=== PATIENT | male | born 1945 | race Native Hawaiian/Other Pacific Islander ===

== ENCOUNTER 2019-10-08 12:07 | Emergency (ER) | payer MEDICARE ==
[2019-10-08 12:19] VITALS: BP 175/77
--- NOTE | 2019-10-08 12:56 | XRay Report ---
CHEST 2 VIEWS INDICATION / CLINICAL INFORMATION: cough. COMPARISON: None available. FINDINGS: SUPPORT DEVICES: None. HEART / MEDIASTINUM: No significant abnormality. LUNGS / PLEURA: There is a focal hazy opacity in the right upper lobe. No pneumothorax. ADDITIONAL FINDINGS: No significant additional findings. IMPRESSION: 1. Hazy parenchymal opacity in the right upper lobe that could reflect developing infectious process. Signer Name: Doug Donaldson MD Signed: 10/08/2019 12:52 PM Workstation Name: [id number]
--- NOTE | 2019-10-08 14:14 | Emergency Department Report ---
Minor Respiratory - [facility] Chief Complaint: Upper Respiratory Infection Stated Complaint: COUGH Time Seen by Provider: 10/08/19 13:43 Duration: 4 Days Minor Respiratory: Yes Able to Tolerate Fluids, Yes Cough, No Rhinorrhea, No Sore Throat, No Ear Pain, No Sick Contacts, No Hemoptysis, No Chest Pain, No Shortness of Breath, No Fever Other History: 73-year-old male presents to the emergency room stating he has been coughing up blood for about 4 days. Patient states that it is a little like specks in his mucus. Patient denies any fever chills no sore throat no diarrhea no abdominal pain shortness of breath nausea or vomiting. Patient states that he takes only hgyu-[id number]-[id number] supplements such as a multivitamin, B1, vitamin C, vitamin D3. Patient states that he has been able to run 6 miles on Sunday. Denies any dizziness. Does not have a primary care provider. ED Review of Systems ROS: Stated complaint: COUGH Other details as noted in HPI ED Past Medical Hx - Past Medical History Previous Medical History?: No - Surgical History Past Surgical History?: No - Social History Smoking Status: Never Smoker Substance Use Type: None - Medications Home Medications: Home Medications Medication Instructions Recorded Confirmed Last Taken Type Azithromycin [Zithromax Z-SATHYA] 250 mg PO DAILY 5 Days #6 tab 10/08/19 Unknown Rx Minor Respiratory Exam - Exam General: Vital signs noted. No distress. Alert and acting appropriately. HEENT: Yes Moist Mucous Membranes, No Pharyngeal Erythema, No Pharyngeal Exudates, No Rhinorrhea, No Conjuctival Injection, No Frontal Tenderness, No Maxillary Tenderness Ear: Neither TM Bulge, Neither TM Erythema, Neither EAC Pain, Neither EAC Discharge Neck: Yes Supple, No Adenopathy Lungs: Yes Good Air Exchange, No Wheezes, No Ronchi, No Stridor, No Cough, No Labored Respirations, No Retractions, No Use of Accessory Muscles, No Other Abnormal Lung Sounds Heart: Yes Regular, No Murmur Abdomen: Yes Normal Bowel Sounds, No Tenderness, No Peritoneal Signs Skin: No Rash, No Edema Neurologic: Alert and oriented, no deficits. Musculoskeletal: Unremarkable. ED Course Vital Signs 10/08/19 12:12 Temperature 98 F Pulse Rate 73 Respiratory 16 Rate Blood Pressure 175/77 [Left] O2 Sat by Pulse 97 Oximetry ED Medical Decision Making - Medical Decision Making 73-year-old male presents to the emergency room stating he has been coughing up blood for about 4 days. Patient states that it is a little like specks in his mucus. Patient denies any fever chills no sore throat no diarrhea no abdominal pain shortness of breath nausea or vomiting. Patient states that he takes only [id number]-yfp-[id number] supplements such as a multivitamin, B1, vitamin C, vitamin D3. Patient states that he has been able to run 6 miles on Sunday. Denies any dizziness. Does not have a primary care provider. X-ray shows some opacities in the upper lobes. Patient be placed on a Z-Sathya and can take [id number] Robitussin. Patient will be referred to a primary care doctor. Critical care attestation.: If time is entered above; I have spent that time in minutes in the direct care of this critically ill patient, excluding procedure time. ED Disposition Clinical Impression: Hemoptysis, Pneumonia Disposition: DC-01 TO HOME OR SELFCARE Is pt being admited?: No Does the pt Need Aspirin: No Condition: Stable Instructions: Bacterial Pneumonia (ED), Community-acquired Pneumonia (ED) Additional Instructions: Complete antibiotics as prescribed. You can take [id number] Robitussin for your cough. Please increase your fluid intake. Follow-up with a primary care provider I have listed 1 below for your convenience. Prescriptions: Azithromycin [Zithromax Z-SATHYA] 250 mg PO DAILY 5 Days #6 tab Referrals: REAGAN PETTIT MD [Staff Physician] - 3-5 Days
== END 2019-10-08 14:57 | disposition home or self-care (01) ==
LOC: ED 12:07
DX: J18.9 Pneumonia, unspecified organism (principal); R04.2 Hemoptysis; Z79.2 Long term (current) use of antibiotics
CPT/HCPCS: 71046